=== PATIENT | male | born 1975 | race Caucasian/White ===

== ENCOUNTER 2017-03-08 18:43 | Emergency (ER) | payer SELFPAY ==
[~2017-03-08] VITALS: Ht 160 cm; Wt 79.0 kg
[2017-03-08 18:46] VITALS: Ht 160 cm; Wt 79.0 kg
[2017-03-08] MEDS ORDERED: IBUP-1542 PO (19:32)
[2017-03-08] MEDS ORDERED: CYCL-319 PO (19:32)
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
== END 2017-03-08 19:41 | disposition home or self-care (01) ==
LOC: FTE 18:43
DX: S13.4XXA Sprain of ligaments of cervical spine, initial encounter (principal); V89.2XXA Person injured in unspecified motor-vehicle accident, traffic, initial encounter
CPT/HCPCS: 99283